=== PATIENT | male | born 1950 | race Two or more races ===

== ENCOUNTER 2022-05-31 10:45 | Inpatient (IN) | payer OTHER ==
[2022-06-04] MEDS ORDERED: INTESTINEX680 M1 PO (13:20)
[2022-06-04] MEDS ORDERED: NEURONTIN300 MG PO (13:20)
[2022-06-04] MEDS ORDERED: ULTRAM50 MG PO (13:20)
== END 2022-06-04 15:05 | disposition home or self-care (01) | DRG 331 ==
LOC: SURH 06-03 10:45 → O/R 06-03 11:00 → SURG 06-03 11:00 → SURH 06-03 15:30 → SURG 06-03 17:43 → SURH 06-04 12:38
PROVIDERS: ADMIT Surgery; ATTEND Surgery
PROC: 0DTJ4ZZ Resection of Appendix, Percutaneous Endoscopic Approach (ICD-10-PCS; 2022-06-03)
PROC: 0DBH4ZZ Excision of Cecum, Percutaneous Endoscopic Approach (ICD-10-PCS; principal; 2022-06-03 15:30)
DX: D12.0 Benign neoplasm of cecum (principal); Z20.822 Contact with and (suspected) exposure to COVID-19